=== PATIENT | male | born 1955 | race Caucasian/White ===

== ENCOUNTER 2019-12-13 10:20 | Outpatient (CLI) | payer MEDICARE, OTHER, SELFPAY ==
--- NOTE | ~2019-12-13 | XR_ITS ---
XR lumbar spine min 4V 12/13/2019 10:56 Indication: Bilateral lower back pain Procedure: 5 views lumbar spine Comparison: No prior studies for comparison. Findings: There is mild disc narrowing at L5-S1. There are facet degenerative changes at L4-5 and L5- S1. There are cholecystectomy clips. Visualized bowel gas pattern is nonobstructive. No evidence for spondylolysis or spondylolisthesis. Impression: 1: Mild lumbar spondylosis. Reviewed, dictated and finalized at location A. Impression: 1: Mild lumbar spondylosis.
== END 2019-12-13 10:21 | disposition home or self-care (01) ==
PROVIDERS: PCP Internal Medicine
DX: M54.5 Low back pain (principal); G89.29 Other chronic pain; M47.816 Spondylosis without myelopathy or radiculopathy, lumbar region
CPT/HCPCS: 72110